=== PATIENT | male | born 1980 | race Caucasian/White ===

== ENCOUNTER 2019-01-28 14:56 | Emergency (ER) | payer OTHER ==
[2019-01-28] MEDS ORDERED: DIAZEPAM 5 MG PREPACK#4 BTL TAKEHOME ONE (16:13)
--- NOTE | 2019-01-28 16:14 | EDPHY ---
H & P Time Seen by Provider: 01/28/19 15:48 HPI/ROS: HPI Anxiety/panic attacks. 38-year-old male by private vehicle. 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 He is from [place]. He is currently in [place] doing some concert. He is also working on a record recording and [facility] and currently living in [facility]. He has a history of panic attacks. He has a physician and [facility]. He has been prescribed Klonopin as well as Xanax in the past for his anxiety. He is out of these medications. He reports that for the last 2 days he has had severe anxiety and difficulty sleeping because of this. He also reports that he has felt uncomfortable getting back on a plane to go back to [place]. He reports that he postponed is flight yesterday and again today. He is asking for medication to help bridge him to get back to [facility] until he can be seen by his physician to obtain refills of his usual anxiety medications. He denies being suicidal. ROS: Constitutional: No fever, no chills. No weakness. Neurological: No headache. No focal weakness or altered sensation. Past medical history: Anxiety. Social history: He denies IV drugs and street drugs. He does not drink alcohol. He is here by himself. As above. Physical Exam: General Appearance: Alert, he is mildly anxious but not in distress. This patient is responding to questions appropriately and in full sentences. This patient appears well-hydrated and well-nourished. Eyes: Pupils equal and round no pallor or injection. No lid edema, erythema or injection. Respiratory: There are no retractions, lungs are clear to auscultation with good air movement bilaterally. Cardiovascular: Regular rate and rhythm. No murmur. Neurological: Motor sensory function is grossly intact. Cranial nerves are normal. Gait is normal. Skin: Warm and dry, no rashes. Extremities are symmetrical. All joints range without pain or impingement. Psychiatric: No agitation. No depression. Database: EKG: Imaging: Procedures: Emergency department course: Triage vital signs reviewed. He is mildly hypertensive. Vital signs are otherwise normal. He is afebrile. Patient's presentation is consistent with an anxiety problem. As noted he is trying to get back to [facility] but does not feel comfortable getting on plain currently. I agreed to prescribe him a short course of of Valium. He will be given a take-home pack because pharmacies are closed today. He has been instructed on dosing of this medication and to take this medication tonight and if needed when he gets on the plane tomorrow to go back to [facility]. He is in agreement with this plan. He is not suicidal. He displays no signs of psychosis. He feels comfortable being discharged. I discussed follow-up through his primary care physician when he returns home for further management of his anxiety. Return to emergency department precautions reviewed. All of his questions were answered. He was discharged from the emergency department in good condition. Differential Diagnosis: The differential diagnosis on this patient includes but is not limited to anxiety disorder. Suicidal ideation, psychosis, severe major depression unlikely. This represents a partial list of diagnoses considered. These considerations are based on history, physical exam, past history, reassessment and diagnostic testing. Smoking Status: Never smoked Constitutional: Initial Vital Signs Temperature (C) 36.7 C 01/28/19 15:06 Heart Rate 68 01/28/19 15:06 Respiratory Rate 18 01/28/19 15:06 Blood Pressure 141/101 H 01/28/19 15:06 O2 Sat (%) 97 01/28/19 15:06 O2 Delivery Mode Room Air Allergies/Adverse Reactions: No Known Allergies Allergy (Unverified 01/28/19 15:09) Home Medications: Medication Instructions Recorded Klonopin 01/28/19 Xanax 01/28/19 Departure - Departure Disposition: Home, Routine, Self-Care Clinical Impression: Anxiety Condition: Good Instructions: Anxiety (ED) Additional Instructions: Read and follow provided instructions. Follow-up with your primary care physician in 1-2 days for re-evaluation and further management of your anxiety when you return home to [place]. Take medication as prescribed. Valium 5 mg tablets: You can take 5 mg before bed tonight and 5 mg before your plane flight tomorrow. You should not drive while on this medication. General dosing as 5 mg every 8 hr as needed for anxiety. Return to the emergency department for worsening symptoms or other serious concerns. Referrals: MD DAVID [Other] - As per Instructions
[2019-01-28 16:25] VITALS: BP 138/89
== END 2019-01-28 16:25 | disposition home or self-care (01) ==
DX: F41.0 Panic disorder [episodic paroxysmal anxiety] (principal)